=== PATIENT | male | born 1950 | race African-American/Black ===

== ENCOUNTER 2016-06-04 09:41 | Inpatient (IN) ==
--- NOTE | 2016-06-04 10:05 | EKG Report ---
Stationary ECG Study [facility] ER Test Date: 06/04/2016 10:01:50 AM Pat Name: YUNI RIDLEY Department: Room: Gender: M Hem Marker: : 1950 Requested by: Jaun Christine Order Number: [id number] Reading MD: TC LOFTON Intervals [place] Rate: 67 P: 82 PA: 191 QRS: 22 QRSD: 85 T: 35 QT: 410 QTc: 425 Interpretive Statements SINUS RHYTHM WITH OCCASIONAL VENTRICULAR PREMATURE COMPLEXES@67BPM POSSIBLE RIGHT VENTRICULAR CONDUCTION DELAY MILD NST Electronically Signed On 06-04-16 10:09:05 CDT by TC LOFTON [email or web address]
[2016-06-04 10:18] LABS: Basophils % 0.2 % (0.0-0.8); Eosinophils % 0.5 % (0.00-10.9); Hematocrit 39.3 VOL% (42.0-52.0); Hemoglobin 13.7 GM/DL (14.0-18.0); Immature Granulocytes % 0.3 %; Immature Granulocytes Absolute 0.02 #; Lymphocytes # 1.7 10*3/uL (1.4-4.0); Mean Corpuscular HGB Conc 34.9 GM/DL (32-36); Mean Corpuscular Hemoglobin 33 PG (27-34); Mean Corpuscular Volume 95.6 FL (87-102); Mean Platelet Volume 11.5 FL (9.6-12.0); Monocytes # 0.7 10*3/uL (0.11-0.8); Neutrophils # 3.4 10*3/uL (1.4-7.4); Platelet Count 109 T/CUMM (130-400); Red Blood Count 4.11 MC/CUMM (3.8-5.5); Red Cell Distribution Width 14.4 % (9.3-17.3); White Blood Count 5.9 T/CUMM (4-12)
--- NOTE | 2016-06-04 10:19 | CT Report ---
CT of the head without contrast. Indication: Acute onset right-sided paralysis. Nonverbal patient. Comparison: February 14, 2014. There is generalized prominence of the ventricles and sulci consistent with atrophy of aging. There are small to medium sized bilateral parietal cortical infarcts, which are not immediately acute but were not present on the previous exam. There is no mass effect or midline shift. There is no evidence of acute hemorrhage. The calvarium is intact. The mastoid air cells are clear. There is mild mucus debris within the right sphenoid sinus. Impression: Since the previous exam, bilateral parietal infarcts have developed, possibly watershed in distribution. No evidence of acute hemorrhage. The CT exam was performed using one or more of the following dose reduction techniques: Automated exposure control, adjustment of the mA and/or kV according to patient size, or use of iterative reconstruction technique. PROCEDURE INTERPRETED AT [facility] DEPARTMENT OF RADIOLOGY Final Report Signed by: Dr. Demi Dobson
--- NOTE | 2016-06-04 10:25 | CT Report ---
CT of the head without contrast. Indication: Fall with abrasions. Right-sided paralysis. Axial images were obtained with sagittal and coronal reconstructions. No prior studies. There is mild straightening of the normal curvature of the cervical spine. Appropriate alignment is seen throughout. The appearance of the craniovertebral junction is within normal limits. At C2-C3, there is mild posterior osteophyte formation and posterior disc bulging. At C4-C5, there is mild posterior disc bulging. At C-C6, there is prominent anterior osteophyte formation, mild posterior osteophyte formation, and posterior disc bulging with possible protrusion. There is corticated calcification within the anterior longitudinal ligament. At C6-C7, there is mild loss of disc space height, exuberant anterior osteophyte formation, moderate posterior osteophyte formation and also posterior disc bulging or protrusion. No lytic or blastic lesion. No evidence of facet dislocation. No fracture lines are visible. Impression: Cervical spondylosis. No evidence of acute fracture. The CT exam was performed using one or more of the following dose reduction techniques: Automated exposure control, adjustment of the mA and/or kV according to patient size, or use of iterative reconstruction technique. PROCEDURE INTERPRETED AT [facility] DEPARTMENT OF RADIOLOGY Final Report Signed by: Dr. Demi Dobson
--- NOTE | 2016-06-04 10:27 | XRay Report ---
Single view of the chest. Indication: Altered mental status. Right-sided paralysis. Fall. Comparison: February 14, 2014. The heart is normal in size. The mediastinal contours are stable. The lung melvin are hyperexpanded and mild fibrotic changes present. No consolidation, pneumothorax, or pleural effusion. Degenerative changes of the shoulders. Impression: COPD. No acute abnormality. PROCEDURE INTERPRETED AT [facility] DEPARTMENT OF RADIOLOGY Final Report Signed by: Dr. Demi Dobson
[2016-06-04 10:38] LABS: Alanine Aminotransferase 40 U/L (16-61); Alkaline Phosphatase 46 U/L (45-117); Aspartate Amino Transferase 31 U/L (0-37); Blood Urea Nitrogen 23 MG/DL (7-18); Calcium 8.9 MG/DL (8.5-10.1); Glucose 134 MG/DL (74-106); Magnesium 2.1 MG/DL (1.8-2.4); Osmolality,Calculated 278.8 MOS/KG (273-304); Potassium 3.7 MMOL/L (3.5-5.1); Sodium 137 MMOL/L (136-145); Total Protein 6.8 G/DL (6.4-8.3)
[2016-06-04 10:39] LABS: Troponin I Only 0.066 NG/ML (0.00-0.045)
--- NOTE | 2016-06-04 11:02 | Emergency Department Note ---
Huma Porter Hilary, am scribing for, and in the presence of, Jaun Perry MD 10: 41. Vicky Porter James D, MD, personally performed the services described in this documentation, ascribed by Brenda Finn in my presence, and it is both accurate and complete . 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 HPI may be limited due to AMS, pt was accompanied by his sister. Last known wellness time stated by patients sister is was 18:30 last night, when he was seen walking and slightly complaining of left groin pain. Patients sister states that she received a call from pts live in girlfriend stating that he was unresponsive. His sister confirms that he smokes cigerattes and evidence of him losing control of his urine. Allergies/Adverse Reactions: Allergies Allergy/AdvReac Type Severity Reaction Status Date / Time Unable to Obtain Allergy Unverified 06/04/16 09:51 Home Medications: Home Medications Medication Instructions Recorded Confirmed Type No Known Home Medications [No 06/04/16 06/04/16 History Known Home Medications] Review of System - Review of System ROS unobtainable: due to mental status Exam Physical Examination: GENERAL: Lethargic black male, in no apparent distress VITAL SIGNS: Temperature: 98.4 Pulse: 68 Respiratory: 16 Blood Pressure: 128/ 83 Sat02: 100 HEENT: Head is normocephalic and atraumatic. Pupils are equally round and reactive to light. Extraocular movement are intact. Oropharynx is benign with moist mucous membranes. NECK: Neck is soft and supple without tenderness. There are no masses. There is no lymphadenopathy. LUNGS: Lungs are clear to auscultation bilaterally. Chest rises symmetrically. There is no chest wall tenderness. CV: Heart is regular rate and rhythm without murmurs, rubs, or gallops. ABDOMEN: Abdomen is soft, non-tender to palpation. There are no abnormal masses palpated. There is no organomegaly. Bowel sounds are present and active. SKIN: Skin is warm and dry. No rash. EXTREMITIES: There is no pedal edema. 2+ clubbing of fingers. NEUROLOGIC: Awake, arousable to vocal stimulus. Dense expressive and receptive aphasia. Poor gag reflex. Gaze preference to the left. Right upper extremity motor function 0/5, right lower extremity 1-2/5. Left arm, left leg 4-5/5. PSYCHIATRIC: Normal affect. Normal mood. Vital Signs: Vital Signs Temperature 98.4 F 06/04/16 10:35 Pulse Rate 68 06/04/16 10:35 Respiratory Rate 18 06/04/16 10:35 Blood Pressure 128/83 06/04/16 10:35 O2 Sat by Pulse Oximetry 100 06/04/16 09:43 Course - Consultations Consultation #1: Discussed with hospitalist. Patient will be admitted to their service. Time: 10:57 Results - Labs CBC & BMP: 06/04/16 09:59 06/04/16 09:59 Lab Results: I have reviewed the patients labs Labs: Laboratory Tests 06/04/16 09:59 BUN 23 H Creatinine 1.50 H Glucose 134 H Troponin I 0.066 H - EKG EKG results: interpreted by ERMD - Impressions EKG: Normal sinus rhythm with a rate of 67, frequent PVCs, incomplete right bundle branch block. - Diagnostic Findings Procedure: Chest x-ray: report reviewed by me, image reviewed by me (COPD. No Acute Abnormality), CT: report reviewed by me, image reviewed by me (CT Spine: Cervical spondylosis. 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
[2016-06-04] MEDS ORDERED: ALBUTEROL 2.5 MG/3 ML NEB RESP TX PRN (11:47)
[2016-06-04] MEDS ORDERED: ACETAMINOPHEN 325 MG TABLET PO PRN (11:47)
[2016-06-04] MEDS ORDERED: LABETALOL 20 MG/4 ML SYRINGE IV PRN (11:47)
[2016-06-04] MEDS ORDERED: DEXTROSE 50% 25 GM/50 ML VIAL IV PRN (11:56)
[2016-06-04] MEDS ORDERED: GLUCAGON 1 MG VIAL IM PRN (11:56)
--- NOTE | 2016-06-04 12:30 | Hospitalist History & Physical ---
Assessment and Plan - Time spent with patient Time spent with patient: Greater than 30 minutes (1) Hyperlipidemia Status: Acute Assessment and plan: 66-year-old -Romanian male with history of TIA approximately 3 years ago brought to the ED today with large bilateral parietal stroke with aphasia and right-sided weakness. Patient is a heavy drinker and smoker and noncompliant with medicines started status post TIA 3 years ago. Patient is being admitted by Dr. Dubose, NG tube will be placed, PT OT and speech will be consulted. Consult Dr. Martinez for CVA. Place in ICU to monitor for cerebral edema. Patient will be started on aspirin and Lipitor. Will check his carotids and echo. Patient has elevated blood sugars at 150 so we will start him on sliding scale as well and monitor. this is all been discussed with Dr. Perry the ED physician and Dr. Dubose the admitting hospitalist. 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 Mills is a 66 year old male with no known medical history who was brought to the ED by ambulance with stroke symptoms. Patient's sister and 2 daughters were present in the room at the time of exam. Patient's sister states that he was in his normal state of health last night around 630 with a complaint of left groin pain and mild limping. Otherwise he was fine. Patients sister states she had a phone call from his friend that lives with him this morning saying they were calling the ambulance with patient found down. Patient's sister denies any medical problems, surgeries, medicines or allergies that she knows of. Looking back in patient's medical records it was found in January 2014 patient had some dizziness and diplopia at work and brought to the ED and admitted. Dr. Martinez was consulted at that time and Dr. Dubose was the admitting physician. Patient was diagnosed with a TIA, started on Lipitor and an aspirin a day. Patient is also a heavy drinker in in 2014 states that he drank 24 beers a week and liquor daily as well. Patient's sister states now she thinks he just drinks a beer or 2 per day and no hard liquor. Upon exam patient is aphasic, can move bilateral upper and lower extremities with some noted right-sided weakness. Patient cannot follow instructions. CT of the head is showing a large bilateral parietal infarct with watershed distribution. No acute hemorrhage identified. Patient's vital signs are stable at this time and labs are relatively normal. Patient's case has been discussed with Dr. Perry the ED physician and Dr. Dubose the admitting hospitalist. Home Medications Medication Instructions Recorded Confirmed Type No Known Home Medications [No 06/04/16 06/04/16 History Known Home Medications] Allergies Allergy/AdvReac Type Severity Reaction Status Date / Time Unable to Obtain Allergy Unverified 06/04/16 09:51 Medical,Surgical,& Family Hx - Medical History Cardio: History of: Hypertension Neurology: History of: TIA Endocrine: History of: Dyslipidemia - Surgical History Cardiac Surgeries: Patient Denies: Cardiac Surgery Abdominal Surgeries: Patient denies: Abdominal Surgery - Family History Family History: Reports;: Family Cancer, Family Diabetes, Family Heart Disease, Family Hypertension, Family Stroke - Social History Smoking Status: Current every day smoker Have you smoked in the last 12 months: Yes Frequency of Alcohol Use: Frequently Marital Status: Single Lives With:: Roommate Functional capacity: independent ambulation ROS unobtainable: due to mental status Exam - Constitutional Exam: Constitutional System: No no distress. [No] tremulousness. Head: Normocephalic, atraumatic. Ears, Nose and Throat System: No evidence of Otitis or Mastoiditis. No epistaxis or discharge, poor dentition Eyes System: Pupils equal, round, and sluggish. Gaze to the left Neck: Supple, without adenopathy, [No] jugular venous distention. No thyromegaly , neck mass, or prior surgery apparent. Respiratory System: Chest [clear] to auscultation. Cardiovascular System: Heart with [regular] rate and rhythm. [No] murmur. GI System: Abdomen [soft], . [Normo]active bowel sounds present. Musculoskeletal System: limbs with [no] pedal edema. [Full] distal pulses. Right-sided weakness, can move all 4 extremities but will not follow commands Neurological System: Sensory deficit unobtainable. aphasia Psychiatric System: Non-conversive Results - Labs CBC & BMP: 06/04/16 09:59 06/04/16 09:59 Lab Results: I have reviewed the past 24 hour labs - EKG EKG results: sinus rhythm - Diagnostic Findings Procedure: Chest x-ray: report reviewed by me (No acute changes), CT: report reviewed by me, image reviewed by me (Large bilateral parietal infarcts)
[2016-06-04 12:57] LABS: Allen Test Positive; Pt O2 Delivery Device Room Air
[2016-06-04 12:58] LABS: ABG Base Excess 0.6 MMOL/L (-2.5-2.5); ABG Oxygen Saturation 98.5 % (95-100); ABG PCO2 37.3 MM HG (35-48); ABG PH 7.428 (7.35-7.45); ABG TCO2 21.3 MMOL/L (23-27)
[2016-06-04 13:14] LABS: PT Patient Result 10.1 SECS
--- NOTE | 2016-06-04 13:36 | Ultrasound Report ---
Bilateral carotid Doppler. Grayscale, color-flow, and spectral analysis performed and interpreted. Indication: Stroke. Comparison: February 14, 2014. Minimal if any atherosclerotic changes are seen within the carotid artery systems. The right internal carotid artery peak systolic velocity is 52 cm/s, with an IC/CC ratio 0.6. The left internal carotid artery peak systolic velocity is 69 cm/s, with an IC/CC ratio 0.7. There is antegrade flow within each vertebral artery. Impression: Using NASCET criteria, findings consistent with less than 50% stenosis bilaterally. PROCEDURE INTERPRETED AT [facility] DEPARTMENT OF RADIOLOGY Final Report Signed by: Dr. Demi Dobson
[2016-06-04 14:08] LABS: Risk Ratio 1.19; Thyroid Stimulating Hormone 2.25 uIU/ml (0.358-3.74); VLDL CHOLESTEROL 15.2 MG/DL
--- NOTE | 2016-06-04 15:06 | XRay Report ---
Referring Physician: Marlene Dubose Exam: XR orbits for mri 3 views Date: June 04, 2016 at 2:32 PM Reason: Worked in [id number], MRI clearance Comparison: CT brain without contrast June 04, 2016 Findings: No radiopaque foreign body is identified within either orbit. There is mucosal thickening and possible fluid within the left maxillary sinus. The paranasal sinuses otherwise appear clear. No acute fracture or osseous destructive process is seen. Impression: 1. No radiopaque foreign body is identified within either orbit. 2. Left maxillary sinus disease. PROCEDURE INTERPRETED AT [facility] DEPARTMENT OF RADIOLOGY Final Report Signed by: Dr. Reed Salazar
[2016-06-04] MEDS: ALBUTEROL/IPRATROPIUM 3 ML NEB RESP TX SCH ×3 (15:22→23:54)
[2016-06-04] MEDS: INSULIN LISPRO 100 UNIT/ML SUBCUT SCH ×2 (15:26→18:22)
[2016-06-04] MEDS: ENOXAPARIN 40 MG/0.4 ML SYRINGE SUBCUT SCH (15:29)
[2016-06-04] MEDS: PANTOPRAZOLE 40 MG VIAL IV SCH (15:30)
[2016-06-04] MEDS: SODIUM CHLORIDE 0.9% 1,000 ML IV SCH (15:30)
[2016-06-04 15:33] LABS: Apearance,Urine CLEAR (Clear); Bilirubin,Urine Negative (Negative); Blood, Urine Small mg/dL (Negative); Glucose,Urine (UA) Negative (Negative); Ketones,Urine 5 mg/dL (Negative); Mucus,Urine Occasional /LPF (Occasional); Nitrite,Urine Negative (Negative); Protein,Urine Negative; RBC,Urine 1 /HPF (0-4); Urine Color Yellow (Yellow); Urine Specific Gravity 1.012 (1.001-1.035); Urine Urobilinogen < 2.0 EU/DL (0.2-1.0); WBC,Urine <1 /HPF (0-6)
--- NOTE | 2016-06-04 15:38 | XRay Report ---
Referring Physician: Marlene Dubose Exam: XR chest 1V portable Date: June 04, 2016 at 3:12 PM Reason: Check NG tube placement Comparison: Chest one view portable June 04, 2016 at 10:08 AM Findings: A feeding tube is in place with its distal tip within the gastric fundus. The cardiac silhouette is normal in size. No focal consolidation, pneumothorax or pleural effusion is identified. No acute osseous process is seen. The visualized bowel gas pattern is nonobstructive. Impression: A feeding tube is in place with its distal tip within the gastric fundus. PROCEDURE INTERPRETED AT [facility] DEPARTMENT OF RADIOLOGY Final Report Signed by: Dr. Reed Salazar
[2016-06-04] MEDS: ASPIRIN EC 81 MG TABLET PO SCH (15:46)
--- NOTE | 2016-06-04 18:03 | Neurology Consult Note ---
History of Present Illness History of present illness: Mr. Mills is a 66 year old AAM with PMH significant for previous TIA who was brought to the ED by ambulance with stroke-like symptoms. Pt is unable to provide me any history and history basically obtained from the [facility]. Patient was in his normal state of health last night around 630 with a complaint of left groin pain and mild limping. Pt's friends found him down. Patient's sister denies any medical problems, surgeries, medicines or allergies that she knows of. He was admitted to [facility] in Jan 2014 with TIA and was started on ASA and Lipitor. Patient is also a heavy drinker in 2014 states that he drank 24 beers a week and liquor daily as well. Patient's sister states now she thinks he just drinks a beer or 2 per day and no hard liquor. CT head showed some old right parital lobe infarcts. Nothing acute seen in the left MCA which is an appropriate side of stroke. Home Medications Medication Instructions Recorded Confirmed Type No Known Home Medications [No 06/04/16 06/04/16 History Known Home Medications] Allergies Allergy/AdvReac Type Severity Reaction Status Date / Time No Known Allergies Allergy Verified 06/04/16 14:25 ROS unobtainable: due to mental status Medical,Surgical,& Family Hx - Medical History Cardio: History of: Cerebrovascular Disease (today), Hypertension, Cardiovascular Problems No history of: Aneurysm, Cardiac Dysrhythmia, Congenital Heart Disease, CHF, CAD, SD, Pacemaker, PVD, Valvular Heart Disease Psychological: No history of: Anxiety Disorders, ADHD, Behavior Problems, Bipolar Disorder, Depression, Previous Suicide Attempt, Psychiatric/Substance Abuse Tx, Schizophrenia, Violent Behavior, Psychiatric Problems Neurology: History of: Cerebrovascular Accident (today), TIA No history of: Brain Aneurysm, Cerebral Hemorrhage, Cerebral Palsy, Dementia , Migraine, Multiple Sclerosis, Parkinson's Disease, Peripheral Neuropathy, Seizures, Vertigo, Neurologocal Cancer HEENT: No history of: Ear Problem, Eye Problem, Dental Problems (missing teeth), Glaucoma, Oral Cancer, HEENT Problems Endocrine: History of: Dyslipidemia No history of: Adrenal Disease, Diabetes Mellitus (IDDM), Diabetes Mellitus ( NIDDM), Thyroid Disorder, Endocrine Cancer, Endocrine Problems Rheumatology: No history of;: Fibromyalgia, Gout, Myasthenia Gravis, Psoriasis, Rheumatoid Arthritis, Sjogrens, Systemic Lupus Erythematosus, Rheumatological Problems Respiratory: No history of: Asthma, Bronchitis, COPD, Intubation, Obstructive Sleep Apnea , Pulmonary Embolism, Pulmonary Hypertension, Pneumonia, Lung Cancer, Respiratory Problems Musculoskeletal: History of: Back/Neck Problems No history of: Amputation, Degenerative Disk Disease, Herniated Disk, Osteoporosis, Musculoskeletal Cancer, Musculoskeletal Problems Hematology: No history of: Anemia, Blood Transfusion Reaction, Bleeding Problems, Clotting Problems, Sickle Cell Disease, Hematologic Cancer, Blood Disorders Reproductive: No histroy: Penile Disorder, Sexually Transmitted Disease, Reproductive Cancer, Reproductive Problems Other: No history of: Anesthesia Reactions, Anaphylaxis, Cancer, Eczema, HIV, Malignant Hyperthermia, MRSA, Vancomycin-Resistant Enterococci, Skin Problems, Miscellaneous Medical Problems - Surgical History Cardiac Surgeries: Patient Denies: Femoral-Popliteal Bypass Graft, Cardiac Catheterization, Cardiac Surgery, Carotid Endarterectomy, Internal Defibrillator, Vascular Access Devices Thoracic Surgeries: Patient denies;: Kidney (Renal Surgery), Lithotripsy, Nephrectomy, Organ Transplant, Lobectomy Neurologic Surgeries: Patient denies: Brain Aneurysm, Cerebral Hemorrhage, Neurologic Surgery HEENT Surgeries: Patient denies: Carotid Endarterectomy, Eye Surgery, Thyroid Surgery, Tonsilectomy & Adenoidectomy Abdominal Surgeries: Patient denies: Abdominal Surgery, Appendectomy, Cholecystectomy, Colonoscopy , Gastric Bypass Surgery, EGD, Hernia Repair, Splenectomy Reproductive Surgeries: Patient denies;: Breast Surgery, Cystoscopy, Genitourinary Surgery, Prostate Surgery, Vasectomy Orthopedic Surgeries: Patient denies;: Implanted Devices, Orthopedic Surgery, Spinal Surgery, Total Hip Replacement, Total Knee Replacement - Family History Family History: Reports;: Family Diabetes (mother,sister), Family Heart Disease (sister), Family Hypertension (mother), Family Stroke (mother) Denies;: Family Anesthesia Reaction, Family Cancer, Family Hematology, Family Psychiatric Problems, Additional Family History - Social History Smoking Status: Current every day smoker Frequency of Alcohol Use: Frequently Type of Drug Use: None Exam - Constitutional Vitals: Period Temp Pulse Resp BP Sys/Ramos Pulse Ox Last 24 Hr 98.2 F-99.0 F 60-70 13-20 133-156/68-88 97-100 Exam: GENERAL: Patient is in no acute distress. NECK: Neck is supple. There is no JVD. No carotid bruits present. No thyroid masses. CVS: First and second heart sounds are normal. There is no S3 present. Regular rate and rhythm. RESPIRATORY: Lungs are clear to auscultation without any rales or rhonchi. ABDOMEN: Soft and non-tender. Bowel sounds are present. There is no hepatosplenomegaly. EXT: There is no palpable edema. Peripheral pulses are present. Skin: No rashes Central Nervous system: General: Alert, awake Speech: Non-Fluent Comprehension: Fair Facial expressions: Normal Cranial Nerves: CN1/Olfactory: Normal CN II/ Optic: Normal, Visual See unreliable CN III, and : GAEL & EOMI CN V: Normal & intact CN VII: Right central facial CNVIII: Normal CN XI/X/XI/XII: Intact and Normal Motor: Bulk and Tone is normal. Strength in the right 1-2/5 Strength in the left 4/5 Sensory: can not be tested Reflexes: 1+ and symmetrical Cerebellar function: can not be tested Gait: can not be tested Results - Labs CBC & BMP: 06/04/16 09:59 06/04/16 09:59 Assessment and Plan (1) Acute CVA (cerebrovascular accident) Status: Acute Assessment and plan: Cont ASA and Lovenox for now. Check Echo MRI brain Lipid panel Pt/OT/ST Agree with tube feeding Thank you for the consult Current Visit: Yes
--- NOTE | 2016-06-04 19:43 | ECHO Report ---
[place] Exam Date: 06/04/2016 12:28 Referring Physician: Technologist: Maggie Yates LEENA Age: 66 Ht (in): 72 Wt (lb): 170 Gender: M Exam Location: [facility] Echo Indications: Altered mental status, Hyperlipidemia, unspecified, Diabetes, Alcohol abuse, Essential (primary) hypertension BP: 128 / 83 HR: 65 Rhythm: Sinus Technical Quality: IMPRESSIONS Normal left ventricular cavity size. Normal left ventricular wall thickness. Left ventricular ejection fraction is estimated at 60 %. Normal diastolic function. Thickened mitral valve, with trace regurgitation. MEASUREMENTS (Male / Female) Normal Values 2D ECHO LV Diastolic Diameter PLAX 5.1 cm 4.2 - 5.9 / 3.9 - 5.3 cm LV Systolic Diameter PLAX 3.0 cm LV Fractional Shortening PLAX 41.0 % IVS Diastolic Thickness 0.7 cm 0.6 - 1.0 / 0.6 - 0.9 cm LVPW Diastolic Thickness 0.8 cm 0.6 - 1.0 / 0.6 - 0.9 cm RV Internal Dim ED PLAX 2.9 cm Aortic Root Diameter 3.1 cm LA Systolic Diameter LX 3.6 cm 3.0 - 4.0 / 2.7 - 3.8 cm FINDINGS Left Ventricle Normal left ventricular cavity size. Normal left ventricular wall thickness. Left ventricular ejection fraction is estimated at 60 %. Normal diastolic function. Right Ventricle The right ventricle is normal in size and function. Right Atrium The right atrium is normal in size. Left Atrium The left atrium is normal in size. Mitral Valve Thickened mitral valve, with trace regurgitation. Aortic Valve Morphologically normal aortic valve without significant sclerosis or stenosis. There is no aortic regurgitation. Tricuspid Valve Morphologically normal tricuspid valve without significant stenosis or regurgitation. Pulmonary artery systolic pressure is normal. Pulmonic Valve Morphologically normal pulmonic valve without significant stenosis. There is no pulmonic regurgitation. Pericardium Normal pericardium without effusion. Aorta Normal ascending aorta dimension. Leonardo Powell (Electronically Signed) Final Date: 04 June 2016 19:42
[2016-06-04] MEDS: ATORVASTATIN 40 MG TABLET PO SCH (20:42)
[2016-06-05] MEDS: INSULIN LISPRO 100 UNIT/ML SUBCUT SCH ×5 (00:45→23:40)
[2016-06-05] MEDS: SODIUM CHLORIDE 0.9% 1,000 ML IV SCH ×3 (01:44→23:08)
[2016-06-05] MEDS: ALBUTEROL/IPRATROPIUM 3 ML NEB RESP TX SCH ×6 (03:24→23:43)
[2016-06-05 06:03] LABS: Albumin 3.2 G/DL (3.4-5.0); Bilirubin,Total 0.7 MG/DL (0.2-1.0); Calcium 8.3 MG/DL (8.5-10.1); Osmolality,Calculated 279.5 MOS/KG (273-304); Potassium 3.5 MMOL/L (3.5-5.1)
[2016-06-05 07:34] LABS: Basophils % 0.3 % (0.0-0.8); Eosinophils % 0.1 % (0.00-10.9); Hematocrit 36.9 VOL% (42.0-52.0); Hemoglobin 12.8 GM/DL (14.0-18.0); Immature Granulocytes % 0.1 %; Immature Granulocytes Absolute 0.01 #; Lymphocytes # 1.8 10*3/uL (1.4-4.0); Lymphocytes % 25.2 % (21.2-54.2); Mean Corpuscular HGB Conc 34.7 GM/DL (32-36); Mean Corpuscular Hemoglobin 33 PG (27-34); Mean Corpuscular Volume 96.1 FL (87-102); Mean Platelet Volume 10.8 FL (9.6-12.0); Monocytes # 0.8 10*3/uL (0.11-0.8); Monocytes % 10.7 % (1.7-12.7); Neutrophils # 4.5 10*3/uL (1.4-7.4); Neutrophils % 63.6 % (38.7-73.9); Red Blood Count 3.84 MC/CUMM (3.8-5.5); Red Cell Distribution Width 14.5 % (9.3-17.3); White Blood Count 7.1 T/CUMM (4-12)
[2016-06-05 07:37] LABS: Platelet Count 82 T/CUMM (130-400)
--- NOTE | 2016-06-05 07:55 | EKG Report ---
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
[2016-06-05 07:56] LABS: Platelet Estimate Decreased
[2016-06-05 08:56] LABS: Magnesium 2.1 MG/DL (1.8-2.4); Phosphorous 2.2 MG/DL (2.5-4.9); Prealbumin 18.6 MG/DL (20-40)
--- NOTE | 2016-06-05 09:17 | Hospitalist Progress Note ---
Assessment and Plan (1) Acute CVA (cerebrovascular accident) Status: Acute Assessment and plan: 1)acute stroke- MRI pending today. carotids with less than 50% stenosis bilaterally, echo with EF 60% and normal diastolic dysfunction. on lipitor and aspirin. PT/OT/ST. repeat swallow eval perhaps tomorrow morning. 2)DM- accuchecks ok- SSI 3)alcohol abuse- no sign of DTs, remain vigilant. He drinks daily, family said a beer a day. 4)smoker 6)hyperlipidemia- LDL 28- recheck. not on any meds at home. Current Visit: Yes (2) COPD (chronic obstructive pulmonary disease) Status: Acute Current Visit: Yes (3) Hypertension Status: Acute Current Visit: Yes (4) Hyperlipidemia Status: Acute Current Visit: Yes (5) Diabetes Status: Acute Current Visit: Yes (6) Alcohol abuse Status: Acute Current Visit: Yes (7) Tobacco abuse Status: Acute Current Visit: Yes Hospitalist: Subjective Interval history: Mr Mills is doing much better this morning. He is moving his left side and when I call his name in greeting he turns to his left and grunts "hi". He follows commands intermittently per nursing. He failed swallow eval yesterday and has tolerated tube feeds. BP has been controlled. Exam - Constitutional Vitals: Period Temp Pulse Resp BP Sys/Ramos Pulse Ox Last 24 Hr 98.2 F-99.9 F 60-86 13-20 122-156/55-88 94-100 General appearance: normal weight, no acute distress - Head Head exam: Present: normocephalic, atraumatic - Eye Eye exam: Present: EOMI. Absent: scleral icterus Pupils: Present: GAEL - Respiratory Respiratory exam: Present: clear to auscultation bilaterally - Cardiovascular Cardiovascular exam: Present: regular rate and rhythm - GI/Abdominal GI/Abdominal exam: Present: normal bowel sounds, soft. Absent: tenderness - Extremities Exam Extremities exam: Absent: edema - Neurological Exam Neurological exam: Present: alert, other (does not really answer questions but is attending to what I tell him. right side weak 3/5 leg and arm but improved since yesterday. Left side he moves at will.) - Psychiatric Psychiatric exam: Present: other (no tremor) - Skin Skin exam: Present: warm, dry Results - Labs CBC & BMP: 06/05/16 07:29 06/05/16 05:07 Lab Results: I have reviewed the past 24 hour labs Quality Measures - Stroke Onset of Symptoms Date: 06/03/16 Presenting Symptoms: Right hemiparesis Symptom Onset Unknown: Yes
--- NOTE | 2016-06-05 10:03 | Magnetic Resonance Report ---
MR head/brain wo con Indication: Stroke Comparison: MRI brain dated February 15, 2014. CT brain dated June 04, 2016 Technique: Multiplanar magnetic resonance imaging was performed of the brain without the use of intravenous contrast. Findings: There is a moderate to large area of restricted diffusion involving the dorsal left frontal lobe and insula in an MCA distribution consistent with acute infarct. There is corresponding T2 hyperintensity as well as gyriform susceptibility suggesting petechial hemorrhage. Small restricted diffusion is suggested within the right parietal cortex with corresponding T2 hyperintensity. This may reflect artifact or acute infarct. There is small encephalomalacia involving the bilateral parietal lobes as well as the ventral right frontal lobe consistent with old infarcts. The midline structures are nondisplaced. There is no evidence of hydrocephalus. The included orbits and their contents appear within normal limits. T2 major vascular flow voids are maintained. IMPRESSION: There is a moderate to large area of restricted diffusion involving the dorsal left frontal lobe and insula in an MCA distribution consistent with acute infarct. There is corresponding T2 hyperintensity as well as gyriform susceptibility suggesting petechial hemorrhage. Small restricted diffusion is suggested within the right parietal cortex with corresponding T2 hyperintensity. This may reflect artifact or acute infarct. There is small encephalomalacia involving the bilateral parietal lobes as well as the ventral right frontal lobe consistent with old infarcts. PROCEDURE INTERPRETED AT [facility] DEPARTMENT OF RADIOLOGY Final Report Signed by: Dr Lino Nair
[2016-06-05] MEDS: ASPIRIN EC 81 MG TABLET PO SCH (10:26)
[2016-06-05] MEDS: PANTOPRAZOLE 40 MG VIAL IV SCH (12:16)
[2016-06-05] MEDS: ENOXAPARIN 40 MG/0.4 ML SYRINGE SUBCUT SCH (12:17)
--- NOTE | 2016-06-05 15:34 | Neurology Progress Note ---
Neurology - PN : Subjective Interval history: Patient seems to be doing about the same. He is alert and awake. Following simple commands in the left side. MRI of the brain revealed large left MCA distribution acute infarct Exam (Progress Note) - Constitutional Vitals: Period Temp Pulse Resp BP Sys/Ramos Pulse Ox Last 24 Hr 98.2 F-99.9 F 62-86 13-20 92-152/55-75 94-100 Exam: GENERAL: Patient is in no acute distress. NECK: Neck is supple. There is no JVD. No carotid bruits present. No thyroid masses. CVS: First and second heart sounds are normal. There is no S3 present. Regular rate and rhythm. RESPIRATORY: Lungs are clear to auscultation without any rales or rhonchi. ABDOMEN: Soft and non-tender. Bowel sounds are present. There is no hepatosplenomegaly. EXT: There is no palpable edema. Peripheral pulses are present. Skin: No rashes Central Nervous system: General: Alert, awake Speech: Non-Fluent Comprehension: Fair Facial expressions: Normal Cranial Nerves: CN1/Olfactory: Normal CN II/ Optic: Normal, Visual See unreliable CN III, and : GAEL & EOMI CN V: Normal & intact CN VII: Right central facial CNVIII: Normal CN XI/X/XI/XII: Intact and Normal Motor: Bulk and Tone is normal. Strength in the right 1-2/5 Strength in the left 4/5 Sensory: can not be tested Reflexes: 1+ and symmetrical Cerebellar function: can not be tested Gait: can not be tested Results - Labs CBC & BMP: 06/05/16 07:29 06/05/16 05:07 Assessment and Plan (1) Acute CVA (cerebrovascular accident) Status: Acute Assessment and plan: Cont ASA and Lovenox for now. Continue PT OT and ST Consult TMR Current Visit: Yes Quality Measures - Stroke Onset of Symptoms Date: 06/03/16 Presenting Symptoms: Right hemiparesis Symptom Onset Unknown: Yes
[2016-06-05 16:25] LABS: Risk Ratio 1.32; VLDL CHOLESTEROL 18.4 MG/DL
[2016-06-05] MEDS: ATORVASTATIN 40 MG TABLET PO SCH (20:50)
[2016-06-06] MEDS: ALBUTEROL/IPRATROPIUM 3 ML NEB RESP TX SCH ×6 (03:40→23:22)
[2016-06-06] MEDS: INSULIN LISPRO 100 UNIT/ML SUBCUT SCH ×3 (05:36→18:16)
[2016-06-06 06:08] LABS: Basophils % 0.4 % (0.0-0.8); Eosinophils % 0.5 % (0.00-10.9); Hemoglobin 11.9 GM/DL (14.0-18.0); Immature Granulocytes % 0.4 %; Immature Granulocytes Absolute 0.02 #; Lymphocytes % 35.8 % (21.2-54.2); Mean Corpuscular Hemoglobin 33 PG (27-34); Mean Corpuscular Volume 97.5 FL (87-102); Mean Platelet Volume 11.5 FL (9.6-12.0); Monocytes # 0.7 10*3/uL (0.11-0.8); Monocytes % 11.9 % (1.7-12.7); Neutrophils # 2.8 10*3/uL (1.4-7.4); Platelet Count 79 T/CUMM (130-400); Red Blood Count 3.59 MC/CUMM (3.8-5.5); Red Cell Distribution Width 14.6 % (9.3-17.3); White Blood Count 5.5 T/CUMM (4-12)
[2016-06-06 06:29] LABS: Lymphocytes 36 % (20-55); Segmented Neutrophils 56 % (50-85); Total Cells Counted 100
[2016-06-06 06:30] LABS: Hypochromasia 1+; Platelet Estimate Decreased
[2016-06-06 06:35] LABS: Calcium 8.2 MG/DL (8.5-10.1); Osmolality,Calculated 279.4 MOS/KG (273-304); Potassium 3.5 MMOL/L (3.5-5.1)
--- NOTE | 2016-06-06 07:13 | XRay Report ---
History is CVA. Comparison 06/04/2016 Mediastinal contour is unchanged. Patient is rotated. Heart is normal in size No consolidative infiltrates seen Impression: No interval change PROCEDURE INTERPRETED AT [facility] DEPARTMENT OF RADIOLOGY Final Report Signed by: Dr. Cristina Dobson
--- NOTE | 2016-06-06 08:57 | Neurology Progress Note ---
Neurology - PN : Subjective Interval history: Patient is unchanged neurologically. Alert and awake. Following extremely simple commands in the left side. Dense hemiplegia in the right-sided. marked dysphagia. He has NG tube. Exam (Progress Note) - Constitutional Vitals: Period Temp Pulse Resp BP Sys/Ramos Pulse Ox Last 24 Hr 97.9 F-99.8 F 63-76 16-20 92-140/64-75 97-100 Exam: GENERAL: Patient is in no acute distress. NECK: Neck is supple. There is no JVD. No carotid bruits present. No thyroid masses. CVS: First and second heart sounds are normal. There is no S3 present. Regular rate and rhythm. RESPIRATORY: Lungs are clear to auscultation without any rales or rhonchi. ABDOMEN: Soft and non-tender. Bowel sounds are present. There is no hepatosplenomegaly. EXT: There is no palpable edema. Peripheral pulses are present. Skin: No rashes Central Nervous system: General: Alert, awake Speech: Non-Fluent Comprehension: Fair Facial expressions: Normal Cranial Nerves: CN1/Olfactory: Normal CN II/ Optic: Normal, Visual See unreliable CN III, and : GAEL & EOMI CN V: Normal & intact CN VII: Right central facial CNVIII: Normal CN XI/X/XI/XII: Intact and Normal Motor: Bulk and Tone is normal. Strength in the right 1-2/5 Strength in the left 4/5 Sensory: can not be tested Reflexes: 1+ and symmetrical Cerebellar function: can not be tested Gait: can not be tested Results - Labs CBC & BMP: 06/06/16 05:26 06/06/16 05:26 Assessment and Plan (1) Acute CVA (cerebrovascular accident) Status: Acute Assessment and plan: Cont ASA and Lovenox for now. Continue PT OT and ST May not be a good candidate for TMR at this time We will see how he does with PT and OT Current Visit: Yes Quality Measures - Stroke Onset of Symptoms Date: 06/03/16 Presenting Symptoms: Right hemiparesis Symptom Onset Unknown: Yes
[2016-06-06] MEDS: SODIUM CHLORIDE 0.9% 1,000 ML IV SCH (09:05)
[2016-06-06] MEDS: ASPIRIN EC 81 MG TABLET PO SCH (09:05)
[2016-06-06] MEDS: PANTOPRAZOLE 40 MG VIAL IV SCH (12:34)
[2016-06-06] MEDS: ENOXAPARIN 40 MG/0.4 ML SYRINGE SUBCUT SCH (12:34)
--- NOTE | 2016-06-06 12:55 | Hospitalist Progress Note ---
Assessment and Plan (1) Acute CVA (cerebrovascular accident) Status: Acute Assessment and plan: 1)acute stroke left frontal lobe and right parietal cortex- carotids ok, EF 60% . On asa. Not ready to eat orally, continue NGT. ST/PT/OT. referred to TMR, should hear tomorrow. 2)DM 3)alcohol abuse- no DTs 4)smoker 5)lipids- HDL 128 and LDL 38 on recheck. stop lipitor. Current Visit: Yes (2) COPD (chronic obstructive pulmonary disease) Status: Acute Current Visit: Yes (3) Hypertension Status: Acute Current Visit: Yes (4) Hyperlipidemia Status: Acute Current Visit: Yes (5) Diabetes Status: Acute Current Visit: Yes (6) Alcohol abuse Status: Acute Current Visit: Yes (7) Tobacco abuse Status: Acute Current Visit: Yes Hospitalist: Subjective Interval history: MR Mills had no events overnight. He is sitting on side of bed, NGT in place, drooling and coughing after attempting to swallow oral secretions. Family present. Exam - Constitutional Vitals: Period Temp Pulse Resp BP Sys/Ramos Pulse Ox Last 24 Hr 97.9 F-99.8 F 63-76 16-18 112-140/65-74 97-100 General appearance: normal weight, no acute distress - Head Head exam: Present: normocephalic, atraumatic - Eye Eye exam: Present: EOMI. Absent: scleral icterus - Respiratory Respiratory exam: Present: clear to auscultation bilaterally - Cardiovascular Cardiovascular exam: Present: regular rate and rhythm - GI/Abdominal GI/Abdominal exam: Present: normal bowel sounds, soft. Absent: tenderness - Extremities Exam Extremities exam: Absent: edema - Neurological Exam Neurological exam: Present: alert, other (dense right side hemiplegia, moving on the left to some commands. Able to hold himself up on side of bed. Clear problems persist with swallowing.) Results - Labs CBC & BMP: 06/06/16 05:26 06/06/16 05:26 Lab Results: I have reviewed the past 24 hour labs Quality Measures - Stroke Onset of Symptoms Date: 06/03/16 Presenting Symptoms: Right hemiparesis Symptom Onset Unknown: Yes
[2016-06-07] MEDS: INSULIN LISPRO 100 UNIT/ML SUBCUT SCH ×3 (01:41→14:14)
[2016-06-07] MEDS: ALBUTEROL/IPRATROPIUM 3 ML NEB RESP TX SCH ×3 (03:10→10:56)
[2016-06-07] MEDS: ASPIRIN EC 81 MG TABLET PO SCH (09:47)
--- NOTE | 2016-06-07 10:24 | Hospitalist Progress Note ---
Assessment and Plan - Time spent with patient Time spent with patient: Less than 30 minutes (1) Hyperlipidemia Status: Acute Assessment and plan: 66-year-old -[place] male with history of TIA approximately 3 years ago brought to the ED today with large bilateral parietal stroke with aphasia and right-sided weakness. Patient is a heavy drinker and smoker and noncompliant with medicines started status post TIA 3 years ago. Patient is being admitted by Dr. Dubose, NG tube will be placed, PT OT and speech will be consulted. Consult Dr. Martinez for CVA. Place in ICU to monitor for cerebral edema. Patient will be started on aspirin and Lipitor. Will check his carotids and echo. Patient has elevated blood sugars at 150 so we will start him on sliding scale as well and monitor. this is all been discussed with Dr. Perry the ED physician and Dr. Dubose the admitting hospitalist. 06/07/2016 patient admitted with an acute stroke left frontal lobe and right parietal cortex. His carotids are okay and he has got an EF of 60%. Patient is on aspirin. Speech is working on swallowing, continue NG tube. Continue PT and OT. Patient is showing progress. [facility] rehab referral is pending. Hope to hear something today. Diabetes-- under good control Alcohol abuse--no signs of DTs. Smoker Lipids--patient does not have hyperlipidemia. Lipitor has been stopped. Care has been coordinated with Dr. Dubose. Further recommendations to follow. 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 Patient is able to make eye contact and not his head. He is trying to speak. He will follow commands. He is moving all 4 extremities with left side 3+/5 to 4/5 and right side 2+/5 to a 3/5 strength. Patient is still requiring tube feeds per dietary instructions. Family states that speech has been working with his swallowing and he is actually starting to swallow a little bit now. Discussed with family that NG tube is a temporary fix and if he does not start swallowing in the next week or so they will need to look at placing a PEG tube. Looking at patient today I am optimistic that he will be able to swallow and can get some function back in his extremities. His Burt catheter was removed and patient is urinating with family assistance. Exam - Constitutional Vitals: Period Temp Pulse Resp BP Sys/Ramos Pulse Ox Last 24 Hr 96.6 F-99.6 F 63-80 16-20 119-134/57-74 95-100 Exam: 66-year-old -[place] male, no acute distress, alert Chest clear CV regular rate and rhythm Abdomen mildly distended, nontender Extremities no edema, moves all fours, weakness bilaterally but right greater than left Results - Labs CBC & BMP: 06/06/16 05:26 06/06/16 05:26 Lab Results: I have reviewed the past 24 hour labs Quality Measures - Stroke Onset of Symptoms Date: 06/03/16 Presenting Symptoms: Right hemiparesis Symptom Onset Unknown: Yes
--- NOTE | 2016-06-07 10:36 | Discharge Summary ---
<Janae Aguirre - Last Filed: 06/07/16 10:30> Hospital Course - Hospital Course Hospital Course: Mr. Mills is a 66-year-old -[place] male with history of diabetes, alcohol abuse, tobacco abuse presenting to the ED on 06/04/2016 with an acute stroke. Patient was admitted to the ICU to observe for cerebral edema, MRI was performed in Dr. Martinez from neurology was consulted. Patient was found to have an acute stroke in the left frontal lobe and right parietal cortex. Ultrasound of the carotids was normal and echo of his heart showed an EF of 60% . Patient was initially started on aspirin and Lipitor but his lipids were normal and the Lipitor was stopped. Patient has been receiving PT/OT/speech and he is making progress. Patient can now make eye contact and attempts to communicate. He can move all 4 extremities though the right is much weaker than the left. He is requiring tube feeds at this time due to dysphasia but speech is diligently working on this. Patient is making good progress with PT and OT as well. Placement in [facility] rehab is pending but he does meet all the qualifications for his insurance company. If they have a bed and insurance approves patient can be transferred today. Care was coordinated with Dr. Dubose and Dr. Martinez along with nursing and manager case management Hunter. Total discharge planning took approximately 39 minutes. 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 Status: Acute (6) COPD (chronic obstructive pulmonary disease) Status: Chronic (7) Hypertension Status: Chronic Discharge Plan - Discharge Data Disposition: Disch/Xfer-Ip Rehab Fac Condition at Discharge: Stable Discharge Diet: other (NG tube with tube feeds per dietary) Activity: as per physical therapy Hygiene: may shower Contact your physician if you experience:: fever over 101 - Discharge Medications New Enoxaparin [Lovenox] 40 mg SUBCUT Q24H syringe Albuterol/Ipratropium Neb [Duoneb] 3 ml RESP TX RT Q4H Aspirin EC Tab 81 mg PO DAILY tablet Glucagon 1 mg IM PRN PRN #0 vial PRN Reason: Hypoglycemia w/o IV access Insulin Lispro [HumaLOG] See Protocol SUBCUT Q6HR unit - Follow Up or Referral - Forms/Instructions Instructions: Chronic Hypertension (GEN), COPD, Physical Director (GEN), Ischemic Stroke, Physical Director (GEN) Exam - Constitutional Vitals: Period Temp Pulse Resp BP Sys/Ramos Pulse Ox Last 24 Hr 96.6 F-99.6 F 63-80 16-20 107-134/57-74 95-100 Exam: 66-year-old -[place] male, no acute distress, alert and attempting to communicate NG tube in place for tube feedings Chest clear CV regular rate and rhythm Abdomen is mildly distended, nontender Extremities no edema, moves all fours, right weaker than the left. Discharge Results Procedures and tests throughout hospitalization: Pending Orders 06/10/16 04:00 Magnesium Routine Phosphorous Routine Prealbumin Routine Labs on day of discharge: Labs from last 24 hours 06/07/16 06/07/16 06/07/16 12:06 08:19 05:58 POC Glucose 131 H 154 H 144 H 06/06/16 18:09 POC Glucose 152 H DS: Provider Date of admission: 06/04/16 11:01 Primary care physician: Lauren Dos Santos DO Attending physician on admission: Marlene Dubose MD Consults: 06/04/16 11:48 Consult to Occupational Therapy [CONS] Routine Reason for Occupational Therapy: Evaluate and Treat Consult Comment: Stroke Consult to Physical Therapy [CONS] Routine Reason for Physical Therapy: Evaluate and Treat Consult Comment: stroke 06/04/16 11:51 Consult to Case Mgmt/Social Srvs [CONS] Routine Reason for Case Mgmt/Social Srvs: Discharge Planning Consult to Dietitian [CONS] Routine Reason for Dietitian: TF-Initiate/Manage Consult to Physician [CONS] Routine Comment: stroke Consulting Provider: Aron Martinez Consulting Provider Notified: Yes Consult to Specialist Group: Neurology Person Notified: LIZZETTE Date Notified: 06/04/16 Time Notified: 15:00 06/04/16 12:11 Consult to Pharmacy [CONS] Routine Reason for Pharmacy Consult: Adjust Meds Renal Funct 06/05/16 15:35 Consult to Case Mgmt/Social Srvs [CONS] Routine Reason for Case Mgmt/Social Srvs: Rehab Discharging clinician: DEMARIO Johnson Expected date of discharge: 06/07/16 <Marlene Dubose - Last Filed: 06/07/16 13:17> Hospital Course - Hospital Course Hospital Course: I have seen and examined Mr Mills independent of DEMARIO Smith and agree with this summary. Mr Mills has had an acute stroke and is doing better than he was on arrival. His receptive aphasia has improved as has his right side neglect. He has weakness on the right and has significant expressive aphasia. He is being fed through a feeding tube but should have swallow reeval by speech therapy at [facility]. He is discharged to [facility] today. On aspirin, no statin because LDL is 38 without one. Diagnosis - Discharge Diagnosis (1) Acute CVA (cerebrovascular accident) Status: Acute (2) COPD (chronic obstructive pulmonary disease) Status: Chronic (3) Hypertension Status: Chronic (4) Hyperlipidemia Status: Chronic (5) Diabetes Status: Chronic (6) Alcohol abuse Status: Chronic (7) Tobacco abuse Status: Chronic
[2016-06-07 12:47] VITALS: BP 107/69
[2016-06-07] MEDS: PANTOPRAZOLE 40 MG VIAL IV SCH (14:15)
[2016-06-07] MEDS: ENOXAPARIN 40 MG/0.4 ML SYRINGE SUBCUT SCH (14:15)
== END 2016-06-07 14:09 | DRG 65 ==
LOC: EDUNIT# → EDBD → N.ED 09:41 → N.EDINP 11:01 → N.ICU 12:55 → N.TELES 06-05 15:56
PROVIDERS: ADMIT Internal Medicine; ATTEND Internal Medicine

== ENCOUNTER 2016-10-22 10:03 | Observation (INO) ==
--- NOTE | 2016-10-22 10:31 | CT Report ---
CT brain Indication: Right-sided weakness, aphasia Comparison: 17 Jul 2016 Technique: Axial CT imaging of the brain is performed without contrast with 3 mm increments. Findings: Areas of decreased density with volume loss are present in both cerebral hemispheres, similar findings were present on the previous exam. The hemorrhage in the left frontal parietal lobe junction on previous study has resolved. No other evidence of hemorrhage, mass mass effect midline shift or acute infarct seen. The remaining brain parenchyma attenuation and differentiation appears within normal limits. The ventricles and cisterns are normal in caliber. No cranial or skull base abnormality is identified. Impression: Chronic infarcts as described above. No acute infarcts identified. This CT exam was performed using one or more the following dose reduction techniques: Automated exposure control, adjustment of the MA and/or KV according to patient size, or use of iterative reconstruction technique. PROCEDURE INTERPRETED AT [facility] DEPARTMENT OF RADIOLOGY Final Report Signed by: Dr. Bill Downs
[2016-10-22 11:00] LABS: Basophils % 0.3 % (0.0-0.8); Eosinophils % 0.9 % (0.00-10.9); Hematocrit 44.2 VOL% (42.0-52.0); Hemoglobin 15.4 GM/DL (14.0-18.0); Lymphocytes # 1.9 10*3/uL (1.4-4.0); Lymphocytes % 58.5 % (21.2-54.2); Mean Corpuscular HGB Conc 34.8 GM/DL (32-36); Mean Corpuscular Hemoglobin 34 PG (27-34); Mean Corpuscular Volume 96.5 FL (87-102); Mean Platelet Volume 11.6 FL (9.6-12.0); Monocytes # 0.3 10*3/uL (0.11-0.8); Monocytes % 9.8 % (1.7-12.7); Neutrophils % 30.5 % (38.7-73.9); Platelet Count 114 T/CUMM (130-400); Red Blood Count 4.58 MC/CUMM (3.8-5.5); Red Cell Distribution Width 14.1 % (9.3-17.3); White Blood Count 3.3 T/CUMM (4-12)
[2016-10-22 11:06] LABS: INR 1.1; PT Patient Result 11.2 SECS; Partial Thromboplastin Time 27.5 SECS (0-40)
--- NOTE | 2016-10-22 11:06 | Emergency Department Note ---
IJacob Brittany, am scribing for, and in the presence of, Jaylon Geronimo MD 10:57. Grazyna Porter Charles R, MD, personally performed the services described in this documentation, ascribed by Yasmine James in my presence, and it is both accurate and complete . Arrival - Arrival Chief Complaint: Neuro Stated Complaint: possible stroke ED Nursing Triage Note: PT WITH HX OF CVA, APHASIC SINCE LAST STROKE, ONSET THIS AM AROUND 8, FAMILY POOR HISTORIAN, PT HAVING DIFFICULTY WITH MOTOR FUNCTION ON RIGHT SIDE Mode of Arrival: Ambulatory Limitations: No Limitations Source: Family Time Seen by Provider: 10/22/16 10:20 - History of Present Illness HPI Narrative: This is will be limited secondary to family being a poor historian. This is a 66 y/o male,who presents to the ED for further neurological evaluation. Pt has had a Hx of CVA. He has aphasia since the last CVA. This time the Sx started at around 2128-4564 this morning. His sister does not know how pt's PCP is. Pt has expressive aphasia and it is very hard to obtain information. He has two sisters , one whom does not know pt's background very well, and his other sister has not yet made it into the ED. We know pt has chronic weakness bilaterally and chronic contractions to the right side, secondary to a previous CVA. He has a Feeding Tube, again whom placed this, we and family are unsure of. We are unsure of how long the feeding tub has been in. Pt's Sx appear to have improved since they first started. No other complaints/pain in the ED. PT has a PMHx of CVA, TIA, seizures, and dyslipidemia. Pt denies a surgical Hx. Pt has a family medical hx of diabetes, heart disease, HTN, and stroke. Pt is a current every day smoker. Onset (ago): hour(s) (Started around 0800 and 0900 this morning.) Consistency: constant Severity: moderate, similar to previous episodes Allergies/Adverse Reactions: Allergies Allergy/AdvReac Type Severity Reaction Status Date / Time No Known Allergies Allergy Verified 10/22/16 10:10 Home Medications: Home Medications Medication Instructions Recorded Confirmed Type Aspirin 81 mg PO QAM 07/02/16 07/17/16 History Atorvastatin [Lipitor] 40 mg PO QAM 07/02/16 07/17/16 History levETIRAcetam TAB [Keppra Tab] 500 mg PO BID 07/02/16 07/17/16 History FLUoxetine [PROzac] 20 mg PO QAM 07/17/16 07/17/16 History Review of System - Review of System ROS unobtainable: other (Aphasia, and family is a poor historian. Information was hard to come by, I was able to look into previous records and charts. ) 12 point system: reviewed and no additional remarkable complaints except as stated - Review of System Neurological: Present: weakness (Weakness to the right side of the body, previous CVA and TIA) Medical,Surgical,& Family Hx - Medical History Cardio: History of: Cerebrovascular Disease (JUNE 2016), Cardiovascular Problems No history of: Aneurysm, Cardiac Dysrhythmia, Congenital Heart Disease, CHF, CAD, Hypertension, [place], Pacemaker, PVD, Valvular Heart Disease Psychological: No history of: Anxiety Disorders, ADHD, Behavior Problems, Bipolar Disorder, Depression, Previous Suicide Attempt, Psychiatric/Substance Abuse Tx, Schizophrenia, Violent Behavior, Psychiatric Problems Neurology: History of: Cerebrovascular Accident (JUNE 2016), Seizures, TIA No history of: Brain Aneurysm, Cerebral Hemorrhage, Cerebral Palsy, Dementia , Migraine, Multiple Sclerosis, Parkinson's Disease, Peripheral Neuropathy, Vertigo, Neurologocal Cancer HEENT: History of: Dental Problems (missing teeth) No history of: Ear Problem, Eye Problem, Glaucoma, Oral Cancer, HEENT Problems Endocrine: History of: Dyslipidemia No history of: Adrenal Disease, Diabetes Mellitus (IDDM), Diabetes Mellitus ( NIDDM), Thyroid Disorder, Endocrine Cancer, Endocrine Problems Rheumatology: No history of;: Fibromyalgia, Gout, Myasthenia Gravis, Psoriasis, Rheumatoid Arthritis, Sjogrens, Systemic Lupus Erythematosus, Rheumatological Problems Respiratory: No history of: Asthma, Bronchitis, COPD, Intubation, Obstructive Sleep Apnea , Pulmonary Embolism, Pulmonary Hypertension, Pneumonia, Lung Cancer, Respiratory Problems Gastrointestinal: History of: GI Problems (PEG tube) Musculoskeletal: No history of: Amputation, Back/Neck Problems, Degenerative Disk Disease, Herniated Disk, Osteoporosis, Musculoskeletal Cancer, Musculoskeletal Problems Hematology: No history of: Anemia, Blood Transfusion Reaction, Bleeding Problems, Clotting Problems, Sickle Cell Disease, Hematologic Cancer, Blood Disorders Reproductive: No histroy: Penile Disorder, Sexually Transmitted Disease, Reproductive Cancer, Reproductive Problems Other: No history of: Anesthesia Reactions, Anaphylaxis, Cancer, Eczema, HIV, Malignant Hyperthermia, MRSA, Vancomycin-Resistant Enterococci, Skin Problems, Miscellaneous Medical Problems - Surgical History Cardiac Surgeries: Patient Denies: Femoral-Popliteal Bypass Graft, Cardiac Catheterization, Cardiac Surgery, Carotid Endarterectomy, Internal Defibrillator, Vascular Access Devices Thoracic Surgeries: Patient denies;: Kidney (Renal Surgery), Lithotripsy, Nephrectomy, Organ Transplant, Lobectomy Neurologic Surgeries: Patient denies: Brain Aneurysm, Cerebral Hemorrhage, Neurologic Surgery HEENT Surgeries: Patient denies: Carotid Endarterectomy, Eye Surgery, Thyroid Surgery, Tonsilectomy & Adenoidectomy Abdominal Surgeries: Patient denies: Abdominal Surgery, Appendectomy, Cholecystectomy, Colonoscopy , Gastric Bypass Surgery, EGD, Hernia Repair, Splenectomy Reproductive Surgeries: Patient denies;: Breast Surgery, Cystoscopy, Genitourinary Surgery, Prostate Surgery, Vasectomy Orthopedic Surgeries: Patient denies;: Implanted Devices, Orthopedic Surgery, Spinal Surgery, Total Hip Replacement, Total Knee Replacement - Family History Family History: Reports;: Family Diabetes (mother,sister, brother), Family Heart Disease (sister), Family Hypertension (mother), Family Stroke (mother) Denies;: Family Anesthesia Reaction, Family Cancer, Family Psychiatric Problems - Social History Smoking Status: Current every day smoker Exam Vital Signs: Vital Signs Temperature 98.6 F 10/22/16 10:58 Pulse Rate 60 10/22/16 11:30 Respiratory Rate 16 10/22/16 11:30 Blood Pressure 115/63 10/22/16 11:30 O2 Sat by Pulse Oximetry 98 10/22/16 11:30 - General General appearance: alert, in no apparent distress - Head Head exam: Present: atraumatic, normocephalic, normal inspection - Eye Eye exam: Present: normal appearance, PERRL, EOMI. Absent: nystagmus - Neck Neck exam: Present: normal inspection, full ROM, trachea midline. Absent: tenderness - Chest Chest inspection: Present: normal inspection, symmetric chest wall rise. Absent : tenderness - Respiratory Respiratory exam: Present: normal lung sounds bilaterally. Absent: rales, respiratory distress, rhonchi, stridor, wheezes - Cardiovascular Cardiovascular exam: Present: regular rate, normal rhythm, normal heart sounds. Absent: murmur, rubs, gallop, clicks, JVD - Abdominal Exam Abdominal exam: Present: soft, normal bowel sounds. Absent: distention, tenderness, guarding, rebound, rigidity - Rectal Exam Rectal exam: Present: deferred - Extremities Exam Extremities exam: Present: other (Chronic contractions to the right side secondary to CVA) - Back Exam Back exam: Present: normal inspection, full ROM. Absent: tenderness, muscle spasm, rashes - Neurological Exam Neurological exam: Present: alert, motor sensory deficit (Bilateal weakness to the bilateral and right sided weakness. Pt is weakner on the right side of the body secondary to previous CVA. ) - Psychiatric Psychiatric exam: Present: normal affect, normal mood. Absent: depressed, agitated, anxious, flat affect - Skin Skin exam: Present: warm, dry, intact, normal color. Absent: rash, cyanosis, diaphoresis - Other Other exam information: Feeding tube in place Course - Consultations Consultation #1: Hospitalist will admit patient Time: 12:00 Results - Labs CBC & BMP: 10/22/16 10:24 10/22/16 10:24 Lab Results: I have reviewed the patients labs Labs: Laboratory Tests 10/22/16 10/22/16 10/22/16 10:24 10:24 10:24 WBC 3.3 L RBC 4.58 Hgb 15.4 Hct 44.2 MCV 96.5 MCH 34 MCHC 34.8 RDW 14.1 Plt Count 114 L MPV 11.6 Neut % (Auto) 30.5 L Lymph % (Auto) 58.5 H [place] % (Auto) 9.8 Eos % (Auto) 0.9 Baso % (Auto) 0.3 Neut # (Auto) 1.0 L Lymph # (Auto) 1.9 [place] # (Auto) 0.3 Eos # (Auto) 0.0 Baso # (Auto) 0.0 Immature Gran % 0.0 Nucleated RBC % 0.0 Immature Gran # 0.00 Nucleated RBCs # 0.00 Immature Plt Fraction 0.0 INR 1.1 PT Patient/Control Mix 11.2 Circ Anticoag PTT 27.5 Sodium 139 Potassium 4.7 Chloride 104 Carbon Dioxide 30 Anion Gap 9.7 BUN 9 Creatinine 1.20 GFR Calculation 74 BUN/Creatinine Ratio 7.00 Glucose 98 Calculated Osmolality 275.5 Calcium 9.3 Total Bilirubin 0.70 AST 13 ALT 20 Alkaline Phosphatase 62 Troponin I < 0.015 Total Protein 7.3 Albumin 3.8 Globulin 3.5 Albumin/Globulin Ratio 1.0 L Serum Alcohol < 15 L - Diagnostic Findings Procedure: Chest x-ray: report reviewed by me (Chronic lung changes. No acute process or significant changes. ), CT: report reviewed by me (Head CT: Areas of decreased density with volume loss are present in both cerebreal hemispheres. Similar findings were present on the previous exam. The hemorrhage in the left frontal parietal lobe juncition on previous study has resolved. No other evidece of hemorrhage, mass mass effect midline shift or acute infarct seen. The remaining brain parenchyma attenuation and differentiation appears with normal limits. The ventricles and cisterns are norml in aliber. No cranial or skull base abnormality is identified. ) Disposition Clinical Impression: Cerebrovascular accident, COPD (chronic obstructive pulmonary disease), Tobacco abuse, Worsening right-sided weakness, PEG tube feeder, Failure to thrive Case discussed with: patient, patient's family Disposition: Still a Patient Condition: Stable Time of Disposition: 12:01 NIH Stroke Score - Stroke Score Initial Assessment Level of Consciousness: Alert Level of Consciousness Questions: Both Incorrect Level of Consciousness Commands: Obeys Both Correctly Best Gaze: Normal Visual See: No Visual Loss Facial Palsy: Partial Motor - Right Arm: Drift Motor - Left Arm: Drift Motor - Right Leg: Drift Motor - Left Leg: Drift Limb Ataxia: Absent Sensory (Pin Prick): Normal Best Language: Mute Dysarthria: Near Unintelligible or Worse Extinction / Inattention (Neglect): No Neglect (All these findings are from previous stroke nothing is new) NIH Stroke Score: 13
--- NOTE | 2016-10-22 11:07 | XRay Report ---
XR chest 1V portable Indication: Cardiomegaly Comparison: 17 Jul 2016 Findings: The heart and mediastinum are normal in size and configuration. The pulmonary vascularity is normal in caliber. Lung volumes are increased with prominent bronchial markings. No lung infiltrates, effusions, pneumothorax or other abnormality is demonstrated. Impression: Chronic lung changes. No acute process or significant change. PROCEDURE INTERPRETED AT [facility] DEPARTMENT OF RADIOLOGY Final Report Signed by: Dr. Bill Downs
[2016-10-22 11:11] LABS: Alanine Aminotransferase 20 U/L (16-61); Albumin 3.8 G/DL (3.4-5.0); Alkaline Phosphatase 62 U/L (45-117); Aspartate Amino Transferase 13 U/L (0-37); Blood Urea Nitrogen 9 MG/DL (7-18); Calcium 9.3 MG/DL (8.5-10.1); Glucose 98 MG/DL (74-106); Osmolality,Calculated 275.5 MOS/KG (273-304); Potassium 4.7 MMOL/L (3.5-5.1); Sodium 139 MMOL/L (136-145); Total Protein 7.3 G/DL (6.4-8.3); Troponin I Only < 0.015 NG/ML (0.00-0.045)
--- NOTE | 2016-10-22 11:12 | EKG Report ---
Stationary ECG Study [facility] ER Test Date: 10/22/2016 11:11:07 AM Pat Name: YUNI RIDLEY Department: Room: Gender: M Slip Tender: : 1950 Requested by: Jaylon Bryant Order Number: [id number] Reading MD: DANIEL AVERY Intervals [place] Rate: 53 P: 85 TX: 188 QRS: 37 QRSD: 90 T: 28 QT: 457 QTc: 439 Interpretive Statements SINUS BRADYCARDIA RIGHT VENTRICULAR CONDUCTION DELAY SEPTAL MYOCARDIAL INFARCTION, PROBABLY OLD Electronically Signed On 10-23-16 07:07:33 CDT by DANIEL AVERY [email or web address]
[2016-10-22 11:24] LABS: Eosinophils 2 % (0-10); Hypochromasia 1+; Lymphocytes 62 % (20-55); Segmented Neutrophils 24 % (50-85); Total Cells Counted 100
[2016-10-22 11:25] LABS: Atypical Lymphocytes Few
--- NOTE | 2016-10-22 13:18 | Hospitalist History & Physical ---
<Elo Kim - Last Filed: 10/22/16 13:56> Assessment and Plan - Time spent with patient Time spent with patient: Greater than 30 minutes (1) Cerebrovascular accident Status: Acute Assessment and plan: 10/22/16 Past History of CVA June 2016(with full work up performed): Asphasic. Patient presented to the ED for worsening right sided weakness this a.m. Will admit for observation. Will consult PT and OT. Current Visit: Yes History of Present Illness Chief complaint: worsening weakness History of present illness: Mr. Mills is a 66 year old black male with PMHx of CVA (right sided weakness), Seizures, TIA, GI (PEG tube), dyslipidemia presented to the ED for further evaluation of worsening right sided (arm more than leg) weakness with worsening right sided motor function. Patient is aphasic since last CVA in June 2016. He nods to "yes and No" questions. He denies any pain, shortness of breath or chest pain. He is able to move all extremities, right arm is notable more weak than left. Patient has a PEG tube; however family reports that he has been eating a regular diet by mouth and has passed his last [address] Miranda office. In ED: Head CT results: chronic infarcts; no acute infarcts identified. CXR: chronic lung changes; no acute process or significant change. LABS: WBC 3.3; Electrolytes within normal ranges. Alcohol negative. After discussion with Dr Geronimo in the ED and Dr Estes with Hospital Medicine, it was agreed to admit patient for observation and further evaluation. Will review home medications and reconciliation to follow. Home Medications Medication Instructions Recorded Confirmed Type Aspirin 81 mg PO QAM 07/02/16 10/22/16 History Atorvastatin [Lipitor] 40 mg PO QAM 07/02/16 10/22/16 History levETIRAcetam TAB [Keppra Tab] 500 mg PO BID 07/02/16 10/22/16 History FLUoxetine [PROzac] 20 mg PO QAM 07/17/16 10/22/16 History Allergies Allergy/AdvReac Type Severity Reaction Status Date / Time No Known Allergies Allergy Verified 10/22/16 10:10 Medical,Surgical,& Family Hx - Medical History Cardio: History of: Cerebrovascular Disease (JUNE 2016), Cardiovascular Problems No history of: Aneurysm, Cardiac Dysrhythmia, Congenital Heart Disease, CHF, CAD, Hypertension, [place], Pacemaker, PVD, Valvular Heart Disease Psychological: No history of: Anxiety Disorders, ADHD, Behavior Problems, Bipolar Disorder, Depression, Previous Suicide Attempt, Psychiatric/Substance Abuse Tx, Schizophrenia, Violent Behavior, Psychiatric Problems Neurology: History of: Cerebrovascular Accident (JUNE 2016), Seizures, TIA No history of: Brain Aneurysm, Cerebral Hemorrhage, Cerebral Palsy, Dementia , Migraine, Multiple Sclerosis, Parkinson's Disease, Peripheral Neuropathy, Vertigo, Neurologocal Cancer HEENT: History of: Dental Problems (missing teeth) No history of: Ear Problem, Eye Problem, Glaucoma, Oral Cancer, HEENT Problems Endocrine: History of: Dyslipidemia No history of: Adrenal Disease, Diabetes Mellitus (IDDM), Diabetes Mellitus ( NIDDM), Thyroid Disorder, Endocrine Cancer, Endocrine Problems Rheumatology: No history of;: Fibromyalgia, Gout, Myasthenia Gravis, Psoriasis, Rheumatoid Arthritis, Sjogrens, Systemic Lupus Erythematosus, Rheumatological Problems Respiratory: No history of: Asthma, Bronchitis, COPD, Intubation, Obstructive Sleep Apnea , Pulmonary Embolism, Pulmonary Hypertension, Pneumonia, Lung Cancer, Respiratory Problems Gastrointestinal: History of: GI Problems (PEG tube) Musculoskeletal: No history of: Amputation, Back/Neck Problems, Degenerative Disk Disease, Herniated Disk, Osteoporosis, Musculoskeletal Cancer, Musculoskeletal Problems Hematology: No history of: Anemia, Blood Transfusion Reaction, Bleeding Problems, Clotting Problems, Sickle Cell Disease, Hematologic Cancer, Blood Disorders Reproductive: No histroy: Penile Disorder, Sexually Transmitted Disease, Reproductive Cancer, Reproductive Problems Other: No history of: Anesthesia Reactions, Anaphylaxis, Cancer, Eczema, HIV, Malignant Hyperthermia, MRSA, Vancomycin-Resistant Enterococci, Skin Problems, Miscellaneous Medical Problems - Surgical History Cardiac Surgeries: Patient Denies: Femoral-Popliteal Bypass Graft, Cardiac Catheterization, Cardiac Surgery, Carotid Endarterectomy, Internal Defibrillator, Vascular Access Devices Thoracic Surgeries: Patient denies;: Kidney (Renal Surgery), Lithotripsy, Nephrectomy, Organ Transplant, Lobectomy Neurologic Surgeries: Patient denies: Brain Aneurysm, Cerebral Hemorrhage, Neurologic Surgery HEENT Surgeries: Patient denies: Carotid Endarterectomy, Eye Surgery, Thyroid Surgery, Tonsilectomy & Adenoidectomy Abdominal Surgeries: Patient denies: Abdominal Surgery, Appendectomy, Cholecystectomy, Colonoscopy , Gastric Bypass Surgery, EGD, Hernia Repair, Splenectomy Reproductive Surgeries: Patient denies;: Breast Surgery, Cystoscopy, Genitourinary Surgery, Prostate Surgery, Vasectomy Orthopedic Surgeries: Patient denies;: Implanted Devices, Orthopedic Surgery, Spinal Surgery, Total Hip Replacement, Total Knee Replacement - Family History Family History: Reports;: Family Diabetes (mother,sister, brother), Family Heart Disease (sister), Family Hypertension (mother), Family Stroke (mother) Denies;: Family Anesthesia Reaction, Family Cancer, Family Psychiatric Problems - Social History Smoking Status: Current every day smoker Review of systems: ROS: patient was able to nod head to "yes and NO" questions however the patient and family are poor historians and could only answer some questions. Was able to get information from Chart review and ED physician. Exam - Constitutional Vitals: Period Temp Pulse Resp BP Sys/Ramos Pulse Ox Last 24 Hr 98.6 F-98.6 F 54-70 16-22 115-130/63-92 98-100 General appearance: normal weight, no acute distress - Head Head exam: Present: normal inspection - Eye Eye exam: Present: EOMI Pupils: Present: GAEL - Neck Neck exam: Present: normal inspection - Respiratory Respiratory exam: Present: clear to auscultation bilaterally. Absent: stridor, wheezes - Cardiovascular Cardiovascular exam: Present: regular rate and rhythm - GI/Abdominal GI/Abdominal exam: Present: normal bowel sounds, soft, other (PEG tube intact; family reports patient has been eating by mouth a regular diet and tolerating well) - Extremities Exam Extremities exam: Present: full ROM. Absent: edema - Neurological Exam Neurological exam: Present: alert (oriented to person, Patient is asphasic and unable to assess orientation properly) - Psychiatric Psychiatric exam: Present: normal affect, normal mood - Skin Skin exam: Present: normal color, warm, dry Results - Labs CBC & BMP: 10/22/16 10:24 10/22/16 10:24 Lab Results: I have reviewed the past 24 hour labs - EKG EKG results: interpreted by TORIBIO - Diagnostic Findings Procedure: Chest x-ray: report reviewed by me (chronic lung changes; no acute process or significant change), CT: report reviewed by me (Chronic infarcts; no acute infarcts identified) Quality Measures - Stroke Onset of Symptoms Date: 10/22/16 Onset of Symptoms Time: 08:00 <Yo Estes - Last Filed: 10/22/16 16:07> Assessment and Plan (1) Cerebral infarction involving left middle cerebral artery Status: Chronic Assessment and plan: Impression: 1. Cerebral infarction, left MCA territory, old 2. Hypertension Plan: The patient appears to be at his baseline. We will observe overnight to rule out any new events. I told the family that we will plan on discharging the patient in the morning unless he had some definite new neurologic findings. I am seeing this patient in colllaboration with the advanced practice or student teacher. I performed the essential elements of the history and examination, and agree with the evaluation as entered, except as noted above. Current Visit: No History of Present Illness History of present illness: Mr. Mills is a 66 year old male The patient was here in the hospital several months ago for a left hemispheric cerebral infarction. This has left him with aphasia and some right upper extremity weakness. The family noted some change in his right upper extremity this morning. They said that he was "holding his hand by his side," and did not appear to be able to use it as well as usual. The patient has been tolerating a regular diet. He has not had any significant complaints. He is ambulatory at home. He had a stroke workup just a few months ago. Head scan in the emergency room did not show any acute changes. Exam - Constitutional Vitals: Period Temp Pulse Resp BP Sys/Ramos Pulse Ox Last 24 Hr 98.0 F-98.6 F 54-74 16- 111-144/63-92 98-100 Vital signs are noted above. 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 Biceps may be 4/5. He appears to have expressive aphasia, but seems to respond well to suggestions. I cannot elicit any pathologic reflexes. Examination is otherwise as described above. Results - Labs CBC & BMP: 10/22/16 10:24 10/22/16 10:24
[2016-10-22] MEDS ORDERED: ACETAMINOPHEN 325 MG TABLET PO PRN (14:02)
[2016-10-22] MEDS ORDERED: ONDANSETRON 4 MG/2 ML VIAL IV PRN (14:02)
[2016-10-22] MEDS: levETIRAcetam 500 MG TABLET PO SCH (21:19)
[2016-10-23 05:48] LABS: Basophils % 0.3 % (0.0-0.8); Eosinophils # 0.1 10*3/uL (0.0-0.87); Eosinophils % 1.5 % (0.00-10.9); Hematocrit 41.4 VOL% (42.0-52.0); Hemoglobin 14.2 GM/DL (14.0-18.0); Immature Granulocytes % 0.3 %; Immature Granulocytes Absolute 0.01 #; Lymphocytes # 2.5 10*3/uL (1.4-4.0); Mean Corpuscular HGB Conc 34.3 GM/DL (32-36); Mean Corpuscular Hemoglobin 33 PG (27-34); Mean Corpuscular Volume 96.7 FL (87-102); Mean Platelet Volume 11.8 FL (9.6-12.0); Monocytes # 0.4 10*3/uL (0.11-0.8); Monocytes % 8.9 % (1.7-12.7); Neutrophils # 1.1 10*3/uL (1.4-7.4); Platelet Count 105 T/CUMM (130-400); Red Blood Count 4.28 MC/CUMM (3.8-5.5); Red Cell Distribution Width 13.8 % (9.3-17.3)
[2016-10-23 06:07] LABS: Calcium 9.1 MG/DL (8.5-10.1); Magnesium 2.2 MG/DL (1.8-2.4); Osmolality,Calculated 275.5 MOS/KG (273-304); Potassium 4.5 MMOL/L (3.5-5.1)
[2016-10-23 06:09] LABS: Band Neutrophils 1 % (0-10); Eosinophils 2 % (0-10); Hypochromasia 1+; Lymphocytes 60 % (20-55); Segmented Neutrophils 28 % (50-85); Total Cells Counted 100
[2016-10-23] MEDS ORDERED: FLUoxetine 20 MG CAPSULE PO SCH (09:00)
[2016-10-23] MEDS ORDERED: PANTOPRAZOLE 40 MG TABLET PO SCH (09:00)
[2016-10-23] MEDS ORDERED: ATORVASTATIN 40 MG TABLET PO SCH (09:00)
[2016-10-23] MEDS ORDERED: ASPIRIN CHEW 81 MG TABLET PO SCH (09:00)
[2016-10-23] MEDS: levETIRAcetam 500 MG TABLET PO SCH (09:10)
--- NOTE | 2016-10-23 09:12 | Discharge Summary ---
Hospital Course - Hospital Course Hospital Course: Discharge diagnosis: 1. Transient weakness right upper extremity, resolved. This does not appear to have been a TIA. I am not even sure it was real. 2. Hypertension 3. Multiple cerebral infarctions. The patient presented to the emergency department for evaluation of some difficulty using his right upper extremity. When I saw the patient in the emergency department, he appeared to have good use of the right upper extremity. Since he has had a couple of recent cerebral infarctions, he was placed in observation. Overnight, he did not have any further symptoms. In fact, I found him wandering up and down the halls looking for his room. The family requested that we make an appointment with GI to have his PEG tube removed. The patient is reached maximal hospital benefit, and we will let him go home. Medication reconciliation has been performed. Resume home diet. Activity as tolerated. This note was completed using [employer] voice recognition software. There may be leasing coordinator errors as a result. 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 Discharge Plan - Discharge Data Disposition: Disch To Home/Self Care Condition at Discharge: Stable Discharge Diet: advance to your usual diet Activity: resume usual activities as tolerated Hygiene: no restrictions Weight Bearing at Discharge: full weight bearing Driving: no restrictions - Discharge Medications Continue FLUoxetine [PROzac] 20 mg PO QAM Aspirin 81 mg PO QAM Atorvastatin [Lipitor] 40 mg PO QAM levETIRAcetam TAB [Keppra Tab] 500 mg PO BID - Follow Up or Referral Follow Up: Camron Morrison MD [Physician] - 2 Weeks (PEG tube removal) - Forms/Instructions Exam - Constitutional Vitals: Period Temp Pulse Resp BP Sys/Ramos Pulse Ox Last 24 Hr 97.3 F-98.6 F 50-80 16-22 102-144/52-92 94-100 Vital signs are noted above. Heart is regular with a 2/6 systolic ejection murmur. Lungs are clear with no rales or wheezes. Abdomen is thin with no mass. He is awake and mobile, but nonconversant. This is his baseline. Discharge Results Procedures and tests throughout hospitalization: Pending Orders 10/22/16 10:50 Urinalysis Stat Labs on day of discharge: Labs from last 24 hours 10/23/16 10/23/16 10/22/16 04:41 04:41 10:24 WBC 4.0 RBC 4.28 Hgb 14.2 Hct 41.4 L MCV 96.7 MCH 33 MCHC 34.3 RDW 13.8 Plt Count 105 L MPV 11.8 Neut % (Auto) 27.0 L Lymph % (Auto) 62.0 H [place] % (Auto) 8.9 Eos % (Auto) 1.5 Baso % (Auto) 0.3 Neut # (Auto) 1.1 L Lymph # (Auto) 2.5 [place] # (Auto) 0.4 Eos # (Auto) 0.1 Baso # (Auto) 0.0 Total Counted 100 Immature Gran % 0.3 Nucleated RBC % 0.0 Immature Gran # 0.01 Segmented Neutrophils 28 L Band Neutrophils 1 Lymphocytes 60 H Monocytes 9 Eosinophils 2 Basophils Nucleated RBCs # 0.00 Atypical Lymphocytes Immature Plt Fraction 0.0 Hypochromasia 1+ Morphology Comment INR PT Patient/Control Mix Circ Anticoag PTT Sodium 139 139 Potassium 4.5 4.7 Chloride 103 104 Carbon Dioxide 32 30 Anion Gap 8.5 9.7 BUN 10 9 Creatinine 1.20 1.20 GFR Calculation 74 74 BUN/Creatinine Ratio 8.00 7.00 Glucose 96 98 Calculated Osmolality 275.5 275.5 Calcium 9.1 9.3 Magnesium 2.2 Total Bilirubin 0.70 AST 13 ALT 20 Alkaline Phosphatase 62 Troponin I < 0.015 Total Protein 7.3 Albumin 3.8 Globulin 3.5 Albumin/Globulin Ratio 1.0 L Serum Alcohol < 15 L 10/22/16 10/22/16 10:24 10:24 WBC 3.3 L RBC 4.58 Hgb 15.4 Hct 44.2 MCV 96.5 MCH 34 MCHC 34.8 RDW 14.1 Plt Count 114 L MPV 11.6 Neut % (Auto) 30.5 L Lymph % (Auto) 58.5 H [place] % (Auto) 9.8 Eos % (Auto) 0.9 Baso % (Auto) 0.3 Neut # (Auto) 1.0 L Lymph # (Auto) 1.9 [place] # (Auto) 0.3 Eos # (Auto) 0.0 Baso # (Auto) 0.0 Total Counted 100 Immature Gran % 0.0 Nucleated RBC % 0.0 Immature Gran # 0.00 Segmented Neutrophils 24 L Band Neutrophils Lymphocytes 62 H Monocytes 11 Eosinophils 2 Basophils 1.0 H Nucleated RBCs # 0.00 Atypical Lymphocytes Few Immature Plt Fraction 0.0 Hypochromasia 1+ Morphology Comment INR 1.1 PT Patient/Control Mix 11.2 Circ Anticoag PTT 27.5 Sodium Potassium Chloride Carbon Dioxide Anion Gap BUN Creatinine GFR Calculation BUN/Creatinine Ratio Glucose Calculated Osmolality Calcium Magnesium Total Bilirubin AST ALT Alkaline Phosphatase Troponin I Total Protein Albumin Globulin Albumin/Globulin Ratio Serum Alcohol DS: Provider Date of admission: 10/22/16 13:52 Primary care physician: Lauren Dos Santos DO Attending physician on admission: Yo Estes MD Consults: 10/22/16 14:05 Consult to Case Mgmt/Social Srvs [CONS] Routine Reason for Case Mgmt/Social Srvs: Discharge Planning Consult to Occupational Therapy [CONS] Routine Reason for Occupational Therapy: Evaluate and Treat Consult to Physical Therapy [CONS] Routine Reason for Physical Therapy: Evaluate and Treat 10/22/16 15:44 Consult to Pastoral Services [CONS] Routine Comment: Pastoral Screen: Request Surgery Aide Visit Pastoral Screen Source of Request: Family Discharging clinician: Yo Estes MD Expected date of discharge: 10/23/16
[2016-10-23 10:49] VITALS: BP 107/62
== END 2016-10-23 13:28 | disposition home or self-care (01) ==
LOC: N.ED 10:03 → N.EDINP 12:12 → INTOOBSV 13:52 → N.EDINP 13:53 → N.3E 14:08
PROVIDERS: ADMIT Internal Medicine Geriatric Medicine; ATTEND Internal Medicine Geriatric Medicine

== ENCOUNTER 2019-06-27 13:49 | Inpatient (IN) ==
[2019-06-27] MEDS ORDERED: SODIUM CHLORIDE 0.9% 1,000 ML IV STA (15:01)
[2019-06-27] MEDS ORDERED: AZITHROMYCIN INJ 500 MG in SODIUM CHLORIDE 0.9% 250 ML IV STA (15:02)
[2019-06-27] MEDS ORDERED: cefTRIAXone 1,000 MG in SODIUM CHLORIDE 0.9% 100 ML IV STA (15:02)
[2019-06-27 15:11] LABS: Basophils % 0.3 % (0.0-0.8); Hematocrit 44.2 VOL% (42.0-52.0); Hemoglobin 13.8 GM/DL (14.0-18.0); Immature Granulocytes % 1.1 %; Immature Granulocytes Absolute 0.16 #; Lymphocytes # 2.3 10*3/uL (1.4-4.0); Lymphocytes % 15.9 % (21.2-54.2); Mean Corpuscular HGB Conc 31.2 GM/DL (32-36); Mean Corpuscular Volume 96.7 FL (87-102); Mean Platelet Volume 11.6 FL (9.6-12.0); Monocytes % 9.2 % (1.7-12.7); Neutrophils % 73.5 % (38.7-73.9); Platelet Count 197 T/CUMM (130-400); Red Blood Count 4.57 MC/CUMM (3.8-5.5); White Blood Count 14.6 T/CUMM (4-12)
[2019-06-27 16:10] LABS: Alanine Aminotransferase 46 U/L (16-61); Alkaline Phosphatase 117 U/L (45-117); Aspartate Amino Transferase 35 U/L (0-37); Blood Urea Nitrogen 46 MG/DL (7-18); Calcium 10.9 MG/DL (8.5-10.1); Estimated Glom Filtration Rate 48 ML/MIN; Glucose 124 MG/DL (74-106); Osmolality,Calculated 302.6 MOS/KG (273-304); Total Protein 9.1 G/DL (6.4-8.3)
[2019-06-27 16:30] LABS: Apearance,Urine Slightly Hazy (Clear); Bacteria,Urine Occasional /HPF (Few); Bilirubin,Urine Negative (Negative); Blood, Urine Small mg/dL (Negative); Glucose,Urine (UA) Negative (Negative); Hyaline Casts,Urine 1 /LPF (0-3); Ketones,Urine Negative (Negative); Mucus,Urine Occasional /LPF (Occasional); Nitrite,Urine Negative (Negative); Protein,Urine 30 MG/DL; RBC,Urine 5 /HPF (0-4); Squamous Epithelial Cell,Urine Occasional /HPF (0-10); Uric Acid Crystals,Urine Occasional /HPF (<1); Urine Color Yellow (Yellow); Urine Specific Gravity 1.019 (1.001-1.035); Urine Urobilinogen < 2.0 EU/DL (0.2-1.0); WBC,Urine 2 /HPF (0-6)
[2019-06-27] MEDS ORDERED: ONDANSETRON 4 MG/2 ML VIAL IV PRN (17:15)
[2019-06-27] MEDS ORDERED: ACETAMINOPHEN 325 MG TABLET PO PRN (17:15)
[2019-06-27] MEDS ORDERED: GLUCAGON 1 MG VIAL IM PRN (17:15)
[2019-06-27] MEDS ORDERED: DEXTROSE 10% 250 ML BAG IV PRN (17:15)
[2019-06-27] MEDS: ENOXAPARIN 40 MG/0.4 ML SYRINGE SUBCUT SCH (22:21)
[2019-06-27] MEDS: PIPERACILLIN/TAZOBACTAM 3,375 MG in SODIUM CHLORIDE 0.9% 100 ML IV SCH (22:21)
[2019-06-27] MEDS: ZINC SULFATE 220 MG CAPSULE PO SCH (22:21)
[2019-06-27] MEDS: DEXTROSE 5% NACL 0.45% 1,000 ML IV SCH (22:23)
[2019-06-28] MEDS: PIPERACILLIN/TAZOBACTAM 3,375 MG in SODIUM CHLORIDE 0.9% 100 ML IV SCH ×3 (03:23→17:39)
[2019-06-28 03:38] LABS: Basophils % 0.3 % (0.0-0.8); Eosinophils % 0.1 % (0.00-10.9); Hematocrit 41.5 VOL% (42.0-52.0); Hemoglobin 12.5 GM/DL (14.0-18.0); Immature Granulocytes % 1.3 %; Immature Granulocytes Absolute 0.15 #; Lymphocytes # 1.9 10*3/uL (1.4-4.0); Mean Corpuscular HGB Conc 30.1 GM/DL (32-36); Mean Corpuscular Volume 99.5 FL (87-102); Mean Platelet Volume 11.3 FL (9.6-12.0); Monocytes % 9.6 % (1.7-12.7); Neutrophils % 71.7 % (38.7-73.9); Platelet Count 214 T/CUMM (130-400); Red Blood Count 4.17 MC/CUMM (3.8-5.5); Red Cell Distribution Width 14.9 % (9.3-17.3); White Blood Count 11.3 T/CUMM (4-12)
[2019-06-28 03:49] LABS: Alanine Aminotransferase 40 U/L (16-61); Albumin 2.7 G/DL (3.4-5.0); Alkaline Phosphatase 104 U/L (45-117); Aspartate Amino Transferase 29 U/L (0-37); Bilirubin,Total < 0.39 MG/DL (0.2-1.0); Blood Urea Nitrogen 40 MG/DL (7-18); Calcium 10.4 MG/DL (8.5-10.1); Estimated Glom Filtration Rate 61 ML/MIN; Glucose 138 MG/DL (74-106); Osmolality,Calculated 305.3 MOS/KG (273-304); Total Protein 8.4 G/DL (6.4-8.3)
[2019-06-28 04:51] LABS: Hepatitis B Core IgM Quant 0.06 Index; Hepatitis B Surface Ag Quant 0.15 Index; Hepatitis B Surface Ag Result Negative (Negative); Hepatitis C Virus Ab Quant 0.21 Index; Hepatitis C Virus Ab Result Negative (Negative)
[2019-06-28] MEDS: PANTOPRAZOLE 40 MG TABLET PO SCH (12:15)
[2019-06-28] MEDS: DEXTROSE 5% 1,000 ML IV SCH (14:24)
[2019-06-28] MEDS: DEXTROSE 5% NACL 0.45% 1,000 ML IV SCH (14:24)
[2019-06-28] MEDS: ENOXAPARIN 40 MG/0.4 ML SYRINGE SUBCUT SCH (20:10)
[2019-06-29] MEDS: PIPERACILLIN/TAZOBACTAM 3,375 MG in SODIUM CHLORIDE 0.9% 100 ML IV SCH ×3 (01:30→18:02)
[2019-06-29 05:52] LABS: Total Protein (Chem) 8.4 G/DL (6.4-8.3)
[2019-06-29 06:13] LABS: Basophils % 0.3 % (0.0-0.8); Eosinophils # 0.1 10*3/uL (0.0-0.87); Eosinophils % 0.6 % (0.00-10.9); Hematocrit 39.6 VOL% (42.0-52.0); Immature Granulocytes Absolute 0.18 #; Lymphocytes # 2.3 10*3/uL (1.4-4.0); Lymphocytes % 26.4 % (21.2-54.2); Mean Corpuscular HGB Conc 30.3 GM/DL (32-36); Mean Corpuscular Volume 100.5 FL (87-102); Mean Platelet Volume 10.9 FL (9.6-12.0); Monocytes % 11.1 % (1.7-12.7); Neutrophils % 59.6 % (38.7-73.9); Platelet Count 197 T/CUMM (130-400); Red Blood Count 3.94 MC/CUMM (3.8-5.5); Red Cell Distribution Width 14.6 % (9.3-17.3); White Blood Count 8.8 T/CUMM (4-12)
[2019-06-29 06:38] LABS: Albumin 2.6 G/DL (3.4-5.0); Bilirubin,Total 0.6 MG/DL (0.2-1.0); Calcium 10.1 MG/DL (8.5-10.1); Osmolality,Calculated 298.3 MOS/KG (273-304); Total Protein 7.8 G/DL (6.4-8.3)
[2019-06-29] MEDS: PANTOPRAZOLE 40 MG TABLET PO SCH (08:28)
[2019-06-29] MEDS: ZINC SULFATE 220 MG CAPSULE PO SCH (08:29)
[2019-06-29 10:09] LABS: Albumin (SPE) Rel % 47.8 %; Alpha 1 (SPE) 0.4 G/DL (0.1-0.4); Alpha 1 (SPE) Rel % 4.4 %; Alpha 2 (SPE) 1.8 G/DL (0.4-1.0); Alpha 2 (SPE) Rel % 21.3 %; Beta (SPE) Rel % 11.8 %; Gamma (SPE) 1.2 G/DL (0.7-1.7); Gamma (SPE) Rel % 14.7 %
[2019-06-29] MEDS: DEXTROSE 5% 1,000 ML IV SCH (17:41)
[2019-06-29] MEDS: ENOXAPARIN 40 MG/0.4 ML SYRINGE SUBCUT SCH (20:35)
[2019-06-30] MEDS: DEXTROSE 5% 1,000 ML IV SCH ×2 (00:11→06:00)
[2019-06-30] MEDS: PIPERACILLIN/TAZOBACTAM 3,375 MG in SODIUM CHLORIDE 0.9% 100 ML IV SCH ×3 (03:05→18:05)
[2019-06-30 06:30] LABS: Basophils % 0.4 % (0.0-0.8); Eosinophils # 0.1 10*3/uL (0.0-0.87); Eosinophils % 0.9 % (0.00-10.9); Hematocrit 37.7 VOL% (42.0-52.0); Hemoglobin 11.5 GM/DL (14.0-18.0); Immature Granulocytes % 0.9 %; Immature Granulocytes Absolute 0.06 #; Lymphocytes # 1.8 10*3/uL (1.4-4.0); Lymphocytes % 26.7 % (21.2-54.2); Mean Corpuscular HGB Conc 30.5 GM/DL (32-36); Mean Corpuscular Volume 98.7 FL (87-102); Mean Platelet Volume 11.2 FL (9.6-12.0); Neutrophils % 63.1 % (38.7-73.9); Platelet Count 165 T/CUMM (130-400); Red Blood Count 3.82 MC/CUMM (3.8-5.5); Red Cell Distribution Width 14.4 % (9.3-17.3); White Blood Count 6.7 T/CUMM (4-12)
[2019-06-30 07:12] LABS: Albumin 2.3 G/DL (3.4-5.0); Bilirubin,Total 0.5 MG/DL (0.2-1.0); Calcium 9.6 MG/DL (8.5-10.1); Osmolality,Calculated 286.8 MOS/KG (273-304); Total Protein 7.5 G/DL (6.4-8.3)
[2019-06-30] MEDS: PANTOPRAZOLE 40 MG TABLET PO SCH (09:05)
[2019-06-30] MEDS: predniSONE 20 MG TABLET PO SCH (09:05)
[2019-06-30] MEDS: ENOXAPARIN 40 MG/0.4 ML SYRINGE SUBCUT SCH (21:47)
[2019-07-01] MEDS: PIPERACILLIN/TAZOBACTAM 3,375 MG in SODIUM CHLORIDE 0.9% 100 ML IV SCH ×2 (02:55→10:04)
[2019-07-01] MEDS: DEXTROSE 5% 1,000 ML IV SCH (03:02)
[2019-07-01] MEDS: PANTOPRAZOLE 40 MG TABLET PO SCH (09:30)
[2019-07-01] MEDS: predniSONE 20 MG TABLET PO SCH (09:30)
[2019-07-01] MEDS: ZINC SULFATE 220 MG CAPSULE PO SCH (09:30)
[2019-07-01 10:01] VITALS: BP 126/52
== END 2019-07-01 15:21 | disposition hospice, home (50) | DRG 682 ==
LOC: N.2E → EDBD → EDUNIT# → N.ED 13:49 → N.EDINP 16:50 → N.2E 17:49
PROVIDERS: ADMIT Internal Medicine; ATTEND Internal Medicine